=== PATIENT | female | born 1965 | race Caucasian/White ===

== ENCOUNTER 2018-08-21 15:29 | Emergency (ER) | payer BC ==
[~2018-08-21] VITALS: Ht 165.1 cm; Wt 127.3 kg
[~2018-08-21 15:29] MED LIST: COLACE100 MG PO; EPIFOAM10 GM TOPICAL; HYDROCODON-ACE1 EAC7 PO; IBUPROFEN600 MG PO; PERCOCET 5/3251 TA1 PO; PREMARIN45 GM
[2018-08-21 15:46] VITALS: Ht 165.1 cm; Wt 127.3 kg
[2018-08-21] MEDS ORDERED: FLORAJEN3 CAPS460 MG PO (15:52)
[2018-08-21 18:31] LABS: INR 1.2 (0.85-1.17); PROTIME 14.7 SECONDS (11.6-15.0)
[2018-08-21 18:33] LABS: D-DIMER-QUANTITATIVE 0.69 ug/mLFEU (0.20-0.54)
[2018-08-21 18:35] LABS: ALBUMIN 3.1 g/dL (3.4-5.0); ANION GAP 12.7 mmol/L (8-16); BILIRUBIN - TOTAL 1.58 mg/dL (0.2-1.3); CALCIUM 8.5 mg/dL (8.5-10.1); CARBON DIOXIDE 26.4 mmol/L (21.0-32.0); POTASSIUM - SERUM 4.1 mmol/L (3.5-5.1)
[2018-08-21 18:43] LABS: BASOPHILS 0.4 % (0-2); EOSINOPHILS 1.9 % (0-7); HEMATOCRIT 38.6 % (36.0-48.0); HEMOGLOBIN 13.6 g/dL (12-16); IMMATURE GRANULOCYTES 0.2 % (0-5); MCH 32.8 pg (26.0-34.0); MCHC 35.2 g/dL (31.0-37.0); MEAN PLATELET VOLUME 10.8 fL (7.4-10.4); MONOCYTES 7.1 % (2-11); NEUTROPHILS 82.4 % (40-80); PLATELET COUNT 69 10x3/uL (130-400); RBC 4.15 10x6/uL (4.00-5.40); RDW 14.1 % (11.5-14.5); WBC 8.5 10x3/uL (4.8-10.8)
[2018-08-21 19:20] LABS: PLATELET ESTIMATE DECREASED
[2018-08-21] MEDS ORDERED: ZOFRAN4 MG PO (19:37)
[2018-08-21] MEDS ORDERED: HYDROCODON-ACE1 EAC7 PO (19:37)
[2018-08-21 20:48] VITALS: BP 123/78
== END 2018-08-21 20:49 | disposition home or self-care (01) ==
LOC: D.ER 15:29
PROVIDERS: Emergency Medicine
DX: R22.41 Localized swelling, mass and lump, right lower limb (principal)

== ENCOUNTER → 2019-12-21 23:59 | Outpatient (CLI) | payer OTHER ==
[2018-08-21 15:46] VITALS: BMI 46.6
[~2019-12-21 23:59] MED LIST changes: +FLORAJEN3 CAPS460 MG PO; +ZOFRAN4 MG PO
== END | disposition home or self-care (01) ==
LOC: D.MAMMO 09:00
PROVIDERS: ATTEND Nurse Practitioner Family
DX: Z12.31 Encounter for screening mammogram for malignant neoplasm of breast (principal)

== ENCOUNTER 2019-12-30 18:00 | Outpatient (CLI) | payer OTHER ==
[2018-08-21 15:46] VITALS: BMI 46.6
== END 2019-12-30 23:59 | disposition home or self-care (01) ==
LOC: D.MAMMO 18:00
PROVIDERS: ATTEND Nurse Practitioner Family
DX: D48.61 Neoplasm of uncertain behavior of right breast (principal)

== ENCOUNTER → 2020-01-10 12:18 | Outpatient (CLI) | payer OTHER ==
[2018-08-21 15:46] VITALS: BMI 46.6
[2020-01-10 14:37] LABS: BASOPHILS 0.7 % (0-2); HEMATOCRIT 34.4 % (36.0-48.0); HEMOGLOBIN 11.4 g/dL (12-16); IMMATURE GRANULOCYTES 0.2 % (0-5); LYMPHOCYTES 21.2 % (15-50); MCH 32.9 pg (26.0-34.0); MCHC 33.1 g/dL (31.0-37.0); MCV 99.4 fL (80.0-100.0); MONOCYTES 8.8 % (2-11); NEUTROPHILS 64.1 % (40-80); PLATELET COUNT 80 10x3/uL (130-400); RBC 3.46 10x6/uL (4.00-5.40); RDW 13.9 % (11.5-14.5); WBC 6.1 10x3/uL (4.8-10.8)
[2020-01-10 15:04] LABS: APTT 28.6 SECONDS (22.8-39.4); INR 1.15 (0.85-1.17); PROTIME 14.7 SECONDS (11.6-15.0)
[2020-01-10 15:10] LABS: PLATELET ESTIMATE DECREASED
== END | disposition home or self-care (01) ==
LOC: D.US 12:18
PROVIDERS: ATTEND Family Medicine
DX: N63.10 Unspecified lump in the right breast, unspecified quadrant (principal); E66.01 Morbid (severe) obesity due to excess calories; Z68.42 Body mass index [BMI] 45.0-49.9, adult; F33.1 Major depressive disorder, recurrent, moderate; I10 Essential (primary) hypertension

== ENCOUNTER 2020-02-04 15:53 | Inpatient (IN) | payer OTHER ==
[~2020-02-04] VITALS: Ht 165.1 cm; Wt 123.6 kg
[2020-02-04] MEDS ORDERED: PREDNISONE (16:55)
[2020-02-04] MEDS ORDERED: COZAAR50 MG PO (16:55)
[2020-02-04] MEDS ORDERED: INHALER (16:55)
[2020-02-04] MEDS ORDERED: LEXAPRO5 MG PO (16:55)
[2020-02-04 17:17] LABS: HEMATOCRIT 32.5 % (36.0-48.0); HEMOGLOBIN 10.7 g/dL (12-16); MCH 32.4 pg (26.0-34.0); MCHC 32.9 g/dL (31.0-37.0); MCV 98.5 fL (80.0-100.0); MEAN PLATELET VOLUME 10.2 fL (7.4-10.4); RDW 14.9 % (11.5-14.5); WBC 2.4 10x3/uL (4.8-10.8)
[2020-02-04 17:21] LABS: PLATELET COUNT 55 10x3/uL (130-400)
[2020-02-04 17:24] LABS: INR 1.1 (0.85-1.17); PROTIME 14.1 SECONDS (11.6-15.0)
[2020-02-04 17:28] LABS: CALC OSMOLALITY 278 mosm/kg (275-300); CALCIUM 7.8 mg/dL (8.5-10.1); CARBON DIOXIDE 26.5 mmol/L (21.0-32.0); CHLORIDE - SERUM 105 mmol/L (98-107); CREATININE - SERUM 1.5 mg/dL (0.6-1.3); GLUCOSE 126 mg/dL (74-106); POTASSIUM - SERUM 4.2 mmol/L (3.5-5.1); SODIUM 137 mmol/L (136-145); UREA NITROGEN 20 mg/dL (7-18); eGFR NON AFRICAN AMERICAN 38 mL/min (90-120)
[2020-02-04 17:45] LABS: ALBUMIN 2.5 g/dL (3.4-5.0); ALKALINE PHOSPHATASE 130 U/L (30-120); ALT (SGPT) 48 U/L (10-68); BILIRUBIN - TOTAL 1.25 mg/dL (0.2-1.3); CREATINE KINASE 306 UL (21-215); PRO BNP 232 pg/mL (0-125); PROTEIN - SERUM 6.3 g/dL (6.4-8.2); TROPONIN-I 0.029 ng/mL (0.000-0.060)
[2020-02-04 18:24] LABS: LYMPHOCYTES 38 % (15-50); NEUTROPHILS 62 % (40-80); PLATELET ESTIMATE DECREASED
[2020-02-04 18:37] VITALS: BP 136/50
[2020-02-05 01:54] VITALS: BP 135/69; Ht 165.1 cm; Wt 123.6 kg
--- NOTE | 2020-02-05 02:03 | NUR ---
ARRIVED TO FLOOR ON STRETCHER. ACCOMPANIED BY STAFF. TRANSFERED SELF TO BED. A/O X 4. UP AD ROBERT TO B/R. IV TO [facility].DENIES ANY NEEDS AT THIS TIME. ASSESSMENT COMPLETE.
--- NOTE | 2020-02-05 10:17 | NUR ---
PT AWAKE AND ORIETNED, LYING IN BED. PT EXPRESSES CONCERNS THAT NO ONE CAME IN HER ROOM OFTEN ENOUGH LAST NIGHT, STATING IN THE FEW HOURS SHE WAS HERE SHE WAS ONLY SEEN TWICE. INFORMED PT OF OUR COVID POLICY AND THE NEED FOR CLUSTER CARE BUT ASSURED HER IF SHE HAD ANY NEEDS [facility] WHEN WE WERE NOT IN THERE, SHE COULD USE HER CL AND WE WOULD COME TO HER AID. NO OTHER COMPLAINTS OR CONCERNS, [facility] FOR MEDICATIONS. CL IN REACH, SRX2.
[2020-02-05 10:21] LABS: BASOPHILS 0.4 % (0-2); EOSINOPHILS 0 % (0-7); HEMATOCRIT 31.4 % (36.0-48.0); HEMOGLOBIN 10.5 g/dL (12-16); IMMATURE GRANULOCYTES 0.4 % (0-5); MCH 32.8 pg (26.0-34.0); MCHC 33.4 g/dL (31.0-37.0); MCV 98.1 fL (80.0-100.0); MEAN PLATELET VOLUME 10.1 fL (7.4-10.4); MONOCYTES 11.2 % (2-11); RDW 14.7 % (11.5-14.5); WBC 2.3 10x3/uL (4.8-10.8)
[2020-02-05 10:29] LABS: PLATELET COUNT 47 10x3/uL (130-400)
[2020-02-05 10:30] LABS: APTT 32.4 SECONDS (22.8-39.4); INR 1.16 (0.85-1.17); PROTIME 14.8 SECONDS (11.6-15.0)
[2020-02-05 10:37] LABS: ALBUMIN 2.3 g/dL (3.4-5.0); ANION GAP 10.2 mmol/L (8-16); BILIRUBIN - TOTAL 1.32 mg/dL (0.2-1.3); CALCIUM 7.5 mg/dL (8.5-10.1); CARBON DIOXIDE 24.9 mmol/L (21.0-32.0); CREATININE - SERUM 1.2 mg/dL (0.6-1.3); POTASSIUM - SERUM 4.1 mmol/L (3.5-5.1); PROTEIN - SERUM 6.1 g/dL (6.4-8.2)
[2020-02-05 12:37] VITALS: BP 144/66
--- NOTE | 2020-02-05 17:08 | NUR ---
I have reviewed this patient and I concur with the Shift Assessment completed by the Licensed Practical Nurse today this shift.
[2020-02-05] MEDS ORDERED: DECADRON4 MG PO (17:14)
[2020-02-05] MEDS ORDERED: ZITHROMAX250 MG PO (17:15)
--- NOTE | 2020-02-05 18:20 | NUR ---
PT ESCORTED OUT VIA WHEELCAHIR FOLLOWING COVID POLICIES TO POV, [place].
--- NOTE | 2020-02-05 19:45 | NUR ---
RECEIVED FINAL REPORT FROM LAB THAT PATIENT IS COVID POSITIVE. CALL TO [phone] AND SPOKE WITH PATIENT AT HER HOME. INSTRUCTED PATIENT THAT THE FINAL RESULTS CAME BACK AND SHE IS COVID POSITIVE. TO FOLLOW DISCHARGE INSTRUCTIONS ON QUARANTINE SELF FOR 14 DAYS AND FOLLOW UP WITH MD PLANNED PER DISCHARGE INSTRUCTIONS. ALSO INSTRUCTED HER TO GO TO ER IF ANY WORSENING IN SYMPTOMS. PT VOICED UNDERSTANDING.
== END 2020-02-05 18:22 | disposition home or self-care (01) | DRG 178 ==
LOC: D.ER 15:53 → D.M2 20:25
PROVIDERS: Emergency Medicine; Family Medicine; ADMIT Family Medicine; ATTEND Family Medicine
DX: U07.1 COVID-19 (principal); D69.3 Immune thrombocytopenic purpura